=== PATIENT | female | born 1960 | race Caucasian/White ===

== ENCOUNTER 2020-01-07 06:12 | Emergency (ER) | payer OTHER, SELFPAY ==
[2020-01-07 06:15] VITALS: BP 140/89; PULSE 89; RESP 18; TEMP 36.8; O2SAT 98; BMI 29.0
--- NOTE | 2020-01-07 06:35 | PC.NURSE ---
PATIENT BEGAN CALLING FOR HELP. THIS RN RETURNED TO ROOM, PATIENT VOMITED APPROXIMATE 150 MLS OF BILE INTO EMESIS BAG. PATIENT ASKED FOR MULITPLE PILLS AND MEDICATION. PATIENT ORIENTATED TO PROCESS NEEDING MD HARKINS FOR MEDICATIONS. WELL HERE, YOU CAN TAKE THIS, GESTURING TO EMESIS BAG. PATIENT ASKED WHAT MADE HER IRRITATED. PER PATIENT, SHE LEFT [facility] DUE TO ED TRANSFER TO [facility].
--- NOTE | 2020-01-07 06:37 | ED_ITS ---
HPI - Abdominal Pain General Chief Complaint: Abdominal Pain Stated Complaint: ACUTE PANCREATITIS Time Seen by Provider: 01/07/20 06:37 Source: patient Mode of arrival: ambulatory Limitations: no limitations History of Present Illness MD elicited complaint: abdominal pain Pertinent past history: other (pancreatitis) Onset (ago): day(s) (2) Pain Consistency: constant Location: epigastric Severity: severe Quality: stabbing Migration to: no migration Exacerbating factors: movement Relieving factors: nothing Associated symptoms: nausea and vomiting Treatments prior to arrival: other (went to [facility] last night CT scan limited but possible mild pancreatitis, lipase 52 left AMA sent home on dilaudid) Related Data Previous Rx's Medication Instructions Recorded nitrofurantoin monohyd/m-cryst 100 mg PO BID 7 Days #14 cap 01/07/20 [Macrobid] ondansetron 4 mg PO Q8H PRN #20 tab 01/07/20 Allergies Allergy/AdvReac Type Severity Reaction Status Date / Time Sulfa (Sulfonamide Allergy Severe ANAPHYLAXIS Verified 01/07/20 07:54 Antibiotics) Penicillins [PENICILLINS] Allergy Unknown ANAPHYLAXIS Verified 01/07/20 07:54 Review of Systems Review of Systems Constitutional : No Weight loss, No Fever, No Chills ENT/Mouth : No sore throat, No Rhinorrhea Eyes: No Swelling, No Redness Cardiovascular : No Chest Pain, No SOB, NoEdema Respiratory : No Cough, No Sputum, No Wheezing Gastrointestinal : Positive Nausea, Positive Vomiting, no Diarrhea, positive abdominal Pain, No Hematochezia, No Melena Genitourinary : No Dysuria, No Urinary Frequency, No Hematuria, No Urgency Musculoskeletal : No joint pain, No Myalgias, No Joint Swelling Skin : No Skin Lesions, No rash Neuro : No Weakness, No Numbness, No Dizziness, No Headache Psych : No Anxiety/Panic, No Depression All other systems reviewed and are negative. Physical Exam Vital Signs: Vital Signs: Last Vital Signs Temp 98.3 F 01/07/20 06:15 Pulse 89 01/07/20 06:15 Resp 18 01/07/20 06:15 BP 140/89 H 01/07/20 06:15 Pulse Ox 98 01/07/20 06:15 Body Mass Index 29.0 Appearance: Alert. Oriented X3. No acute distress. talking on phone as I enter the room no distress, animated Eyes: Pupils equal, round and reactive to light. ENT: Pharynx normal. Neck: Normal inspection. Neck supple. CVS: Normal heart rate and rhythm. Pulses normal. Respiratory: No respiratory distress. Breath sounds normal. Abdomen: Soft and mild epigastric ttp no rebound or guarding Skin: Skin warm and dry. Normal skin color. Normal skin turgor. Extremities: No lower extremity edema. No calf ttp Neuro: Oriented X 3. No motor deficit. No sensory deficit. Course Course Course Narrative: [facility] records patient did not leave AMA - just preferred to go home US ordered today for better evaluation of pancreas not toxic, can tolerate PO, US and labs unremarkable stable for DC MDM - Abdominal Pain MDM Narrative Medical decision making narrative: 59 yo female s/p lap wilfred here with pancreatitis flare denies ETOH reports epigastric pain and vomiting for 2 days, just seen at outside facility with lipase of [address] report - appears to have signed out AMA and was sent home on dilaudid at this time will repeat labs, hydrate and medicate - depending on findings may be able to go home, her exam is fairly benign as well and shows no signs of dehydration Lab Data Result diagrams: 01/07/20 07:26 01/07/20 07:26 Labs: Lab Results 01/07/20 01/07/20 01/07/20 Range/Units 07:26 07:26 07:26 WBC 13.7 H (4.8-10.8) X10*3/uL RBC 4.94 (4.20-5.50) X10*6/uL Hgb 14.3 (12.0-16.0) g/dl Hct 43.9 (37-47) % MCV 88.9 (80-98) fL MCH 28.9 (27.0-33.0) pg MCHC 32.6 (31.0-35.0) g/dl RDW 13.6 (11.0-16.0) % Plt Count 404 H (160-400) X10*3/uL MPV 9.7 (9.4-12.3) fL Immature Gran % (Auto) 0.5 H (0.0-0.4) % Neut % (Auto) 82.7 H (45-73) % Lymph % (Auto) 10.2 L (20-40) % Randolph % (Auto) 5.6 (2-11) % Eos % (Auto) 0.6 (0-4) % Baso % (Auto) 0.4 (0-2) % Lymph # (Auto) 1.4 (1.2-4.9) X10*3/uL Randolph # (Auto) 0.8 (0.1-1.2) X10*3/uL Eos # (Auto) 0.1 (0.0-0.4) X10*3/uL Baso # (Auto) 0.1 (0.0-0.2) X10*3/uL Abs Immat Gran (auto) 0.07 H (0.00-0.03) X10*3/uL Absolute Neuts (auto) 11.3 H (2.0-8.3) X10*3/uL Absolute Nucleated RBC 0.000 (0.0-0.012) X10*3/uL Nucleated RBC % (auto) 0.0 (0.0-0.2) /100WBC PT (10.8-13.0) SEC INR (0.9-1.1) APTT (24.1-38.0) SEC Sodium 140 (135-145) mmol/L Potassium 3.7 (3.3-5.1) mmol/l Chloride 101 (96-108) mmol/L Carbon Dioxide 27 (22-29) mmol/L Anion Gap 16 (12-20) BUN 8 L (9-16) mg/dL Creatinine 0.70 (0.5-1.4) mg/dL Estim Creat Clear Calc 78.5 Estimated GFR > 60 Random Glucose 134 H (60-115) mg/dL Calcium 9.7 (8.4-10.2) mg/dL Magnesium 2.0 (1.6-2.6) mg/dL Total Bilirubin 1.3 H (0.0-1.0) mg/dL Direct Bilirubin 0.4 (0.0-0.5) mg/dL AST 21 (5-31) U/L ALT 19 (0-31) U/L Alkaline Phosphatase 93 (39-117) U/L Total Protein 7.8 (6.5-8.0) g/dL Albumin 4.7 (3.5-5.0) g/dL Lipase 35 (8-78) U/L Urinalysis Urine Color Urine Appearance Urine pH (5.0-8.0) Ur Specific [place] (1.005-1.025) Urine Protein (NEG-TRACE) MG/DL Urine Glucose (UA) (NEG) MG/DL Urine Ketones (NEG) MG/DL Urine Blood (NEG) Urine Nitrite (NEG) Ur Leukocyte Esterase (NEG) Urine RBC (0) /HPF Urine WBC (0-4) /HPF Ur Squamous Epith Cells /LPF Urine Bacteria /LPF Urine Mucus /LPF Urine Opiates Screen (Not Detect) Ur Barbiturates Screen (Not Detect) Ur Phencyclidine Scrn (Not Detect) Ur Amphetamines Screen (Not Detect) U Benzodiazepines Scrn (Not Detect) Urine Cocaine Screen (Not Detect) U Marijuana (THC) Screen (Not Detect) Ethyl Alcohol < 10 mg/dL 01/07/20 01/07/20 01/07/20 Range/Units 07:26 07:26 07:39 WBC (4.8-10.8) X10*3/uL RBC (4.20-5.50) X10*6/uL Hgb (12.0-16.0) g/dl Hct (37-47) % MCV (80-98) fL MCH (27.0-33.0) pg MCHC (31.0-35.0) g/dl RDW (11.0-16.0) % Plt Count (160-400) X10*3/uL MPV (9.4-12.3) fL Immature Gran % (Auto) (0.0-0.4) % Neut % (Auto) (45-73) % Lymph % (Auto) (20-40) % Randolph % (Auto) (2-11) % Eos % (Auto) (0-4) % Baso % (Auto) (0-2) % Lymph # (Auto) (1.2-4.9) X10*3/uL Randolph # (Auto) (0.1-1.2) X10*3/uL Eos # (Auto) (0.0-0.4) X10*3/uL Baso # (Auto) (0.0-0.2) X10*3/uL Abs Immat Gran (auto) (0.00-0.03) X10*3/uL Absolute Neuts (auto) (2.0-8.3) X10*3/uL Absolute Nucleated RBC (0.0-0.012) X10*3/uL Nucleated RBC % (auto) (0.0-0.2) /100WBC PT 12.8 (10.8-13.0) SEC INR 1.1 (0.9-1.1) APTT 33.7 (24.1-38.0) SEC Sodium (135-145) mmol/L Potassium (3.3-5.1) mmol/l Chloride (96-108) mmol/L Carbon Dioxide (22-29) mmol/L Anion Gap (12-20) BUN (9-16) mg/dL Creatinine (0.5-1.4) mg/dL Estim Creat Clear Calc Estimated GFR Random Glucose (60-115) mg/dL Calcium (8.4-10.2) mg/dL Magnesium Cancelled (1.6-2.6) mg/dL Total Bilirubin Cancelled (0.0-1.0) mg/dL Direct Bilirubin Cancelled (0.0-0.5) mg/dL AST Cancelled (5-31) U/L ALT Cancelled (0-31) U/L Alkaline Phosphatase Cancelled (39-117) U/L Total Protein Cancelled (6.5-8.0) g/dL Albumin Cancelled (3.5-5.0) g/dL Lipase Cancelled (8-78) U/L Urinalysis Urine Color YELLOW Urine Appearance HAZY Urine pH 7.0 (5.0-8.0) Ur Specific [place] 1.020 (1.005-1.025) Urine Protein TRACE (NEG-TRACE) MG/DL Urine Glucose (UA) NEG (NEG) MG/DL Urine Ketones >=80 (NEG) MG/DL Urine Blood TRACE (NEG) Urine Nitrite NEG (NEG) Ur Leukocyte Esterase TRACE H (NEG) Urine RBC 1-4 (0) /HPF Urine WBC 5-9 H (0-4) /HPF Ur Squamous Epith Cells 1+ /LPF Urine Bacteria NONE /LPF Urine Mucus 1+ /LPF Urine Opiates Screen (Not Detect) Ur Barbiturates Screen (Not Detect) Ur Phencyclidine Scrn (Not Detect) Ur Amphetamines Screen (Not Detect) U Benzodiazepines Scrn (Not Detect) Urine Cocaine Screen (Not Detect) U Marijuana (THC) Screen (Not Detect) Ethyl Alcohol mg/dL 01/07/20 01/07/20 Range/Units 07:45 07:45 WBC (4.8-10.8) X10*3/uL RBC (4.20-5.50) X10*6/uL Hgb (12.0-16.0) g/dl Hct (37-47) % MCV (80-98) fL MCH (27.0-33.0) pg MCHC (31.0-35.0) g/dl RDW (11.0-16.0) % Plt Count (160-400) X10*3/uL MPV (9.4-12.3) fL Immature Gran % (Auto) (0.0-0.4) % Neut % (Auto) (45-73) % Lymph % (Auto) (20-40) % Randolph % (Auto) (2-11) % Eos % (Auto) (0-4) % Baso % (Auto) (0-2) % Lymph # (Auto) (1.2-4.9) X10*3/uL Randolph # (Auto) (0.1-1.2) X10*3/uL Eos # (Auto) (0.0-0.4) X10*3/uL Baso # (Auto) (0.0-0.2) X10*3/uL Abs Immat Gran (auto) (0.00-0.03) X10*3/uL Absolute Neuts (auto) (2.0-8.3) X10*3/uL Absolute Nucleated RBC (0.0-0.012) X10*3/uL Nucleated RBC % (auto) (0.0-0.2) /100WBC PT (10.8-13.0) SEC INR (0.9-1.1) APTT (24.1-38.0) SEC Sodium (135-145) mmol/L Potassium (3.3-5.1) mmol/l Chloride (96-108) mmol/L Carbon Dioxide (22-29) mmol/L Anion Gap (12-20) BUN (9-16) mg/dL Creatinine (0.5-1.4) mg/dL Estim Creat Clear Calc Estimated GFR Random Glucose (60-115) mg/dL Calcium (8.4-10.2) mg/dL Magnesium (1.6-2.6) mg/dL Total Bilirubin (0.0-1.0) mg/dL Direct Bilirubin (0.0-0.5) mg/dL AST (5-31) U/L ALT (0-31) U/L Alkaline Phosphatase (39-117) U/L Total Protein (6.5-8.0) g/dL Albumin (3.5-5.0) g/dL Lipase (8-78) U/L Urinalysis Cancelled Urine Color Urine Appearance Urine pH (5.0-8.0) Ur Specific [place] (1.005-1.025) Urine Protein (NEG-TRACE) MG/DL Urine Glucose (UA) (NEG) MG/DL Urine Ketones (NEG) MG/DL Urine Blood (NEG) Urine Nitrite (NEG) Ur Leukocyte Esterase (NEG) Urine RBC (0) /HPF Urine WBC (0-4) /HPF Ur Squamous Epith Cells /LPF Urine Bacteria /LPF Urine Mucus /LPF Urine Opiates Screen POSITIVE H (Not Detect) Ur Barbiturates Screen Not Detected (Not Detect) Ur Phencyclidine Scrn Not Detected (Not Detect) Ur Amphetamines Screen Not Detected (Not Detect) U Benzodiazepines Scrn Not Detected (Not Detect) Urine Cocaine Screen Not Detected (Not Detect) U Marijuana (THC) Screen POSITIVE H (Not Detect) Ethyl Alcohol mg/dL ECG Data Attestation: I personally reviewed and interpreted this ECG as follows: ECG interpretation date: 01/07/20 ECG interpretation time: 07:22 Interpretation: Rate:71 Rhythm: NSR [place]: normal Normal P waves. Normal CRYSTAL. Normal QRS complex. ST T wave : normal qTC: normal prior studies: normal no acute ischemia The study has been interpreted contemporaneously by me. . Discharge Plan Discharge Clinical Impression: Abdominal pain Qualifiers: Abdominal location: epigastric Qualified Code(s): R10.13 - Epigastric pain UTI (urinary tract infection) Qualifiers: Urinary tract infection type: site unspecified Hematuria presence: without hematuria Qualified Code(s): N39.0 - Urinary tract infection, site not specified Patient Disposition: Home, Self-Care Instructions: Urinary Tract Infection in Women (ED), Abdominal Pain (ED) Prescriptions: New ondansetron 4 mg tablet,disintegrating 4 mg PO Q8H PRN (Reason: nausea and vomiting) Qty: 20 RF: 0 nitrofurantoin monohyd/m-cryst [Macrobid] 100 mg capsule 100 mg PO BID 7 Days Qty: 14 RF: 0 Referrals: David Cast MD [Primary Care Provider] - 2 days (if not better) [facility] Past Medical History Attestation statement: The following information was validated with the patient. Medical History Cholecystectomy planned Pancreatitis Surgical History History of cholecystectomy Social History Social History Smoking Status: Unknown if ever smoked Smoked in Last 30 Days: No Use of substances other than those prescribed or required for medical reasons: No Advance Directives: No Advance Directives Information Provided: No
--- NOTE | 2020-01-07 07:03 | ECG_ITS ---
Test Reason : ABDOMINAL PAIN Blood Pressure : / mmHG Vent. Rate : 071 BPM Atrial Rate : 071 BPM P-R Int : 142 ms QRS Dur : 080 ms QT Int : 384 ms P-R-T Axes : 037 020 036 degrees QTc Int : 417 ms Normal sinus rhythm Normal ECG When compared with ECG of 21-AUG-2012 21:14, Vent. rate has decreased BY 41 BPM Minimal criteria for Inferior infarct are no longer Present Nonspecific T wave abnormality no longer evident in Inferior leads Nonspecific T wave abnormality no longer evident in Lateral leads Referred By: Bernadette Cárdenas Electronically Signed By:CHRISTY STEELE MD
--- NOTE | 2020-01-07 07:09 | PC.NURSE ---
REPORT FROM MARVIN MEMBRENO.
--- NOTE | 2020-01-07 07:22 | US_ITS ---
EXAMINATION: US ABDOMEN LIMITED CLINICAL INFORMATION: Upper abdominal pain, evaluate pancreas. COMPARISON: None TECHNIQUE: Real-time imaging of the right upper quadrant abdominal viscera. FINDINGS: PANCREAS: Visualized portions unremarkable. The tail is partially obscured by bowel gas shadowing. LIVER: An echogenic subcapsular focus is seen posterolaterally in the right lobe measuring up to 0.7 cm. The remainder of the liver is unremarkable. GALLBLADDER: Status post cholecystectomy. COMMON BILE DUCT: Normal in caliber measuring 0.5 cm in diameter. RIGHT KIDNEY: 10.5 cm. Unremarkable. FREE FLUID: None. US/US abdomen limited IMPRESSION: 1. No significant pancreatic abnormality. 2. Probable small subcapsular calcification demonstrated benign features posterolaterally in the right hepatic lobe. No other significant hepatic abnormality. 3. Status post cholecystectomy. No significant biliary ductal dilatation.
[2020-01-07 07:34] LABS: MANUAL DIFF FLAG NO
[2020-01-07 07:40] LABS: Basophils Absolute Auto 0.1 X10*3/uL (0.0-0.2); Basophils Percent Auto 0.4 % (0-2); Eosinophils Absolute Auto 0.1 X10*3/uL (0.0-0.4); Eosinophils Percent Auto 0.6 % (0-4); Hematocrit 43.9 % (37-47); Hemoglobin 14.3 g/dl (12.0-16.0); Imm Gran Abs Auto 0.07 X10*3/uL (0.00-0.03); Imm Gran Pct Auto 0.5 % (0.0-0.4); Lymphocytes Absolute Auto 1.4 X10*3/uL (1.2-4.9); Lymphocytes Percent Auto 10.2 % (20-40); Mean Corpuscular HGB Conc 32.6 g/dl (31.0-35.0); Mean Corpuscular Hemoglobin 28.9 pg (27.0-33.0); Mean Corpuscular Volume 88.9 fL (80-98); Mean Platelet Volume 9.7 fL (9.4-12.3); Monocytes Absolute Auto 0.8 X10*3/uL (0.1-1.2); Monocytes Percent Auto 5.6 % (2-11); Neutrophils Absolute Auto 11.3 X10*3/uL (2.0-8.3); Neutrophils Percent Auto 82.7 % (45-73); Platelet Count 404 X10*3/uL (160-400); Red Blood Count 4.94 X10*6/uL (4.20-5.50); Red Cell Distribution Width 13.6 % (11.0-16.0); White Blood Count 13.7 X10*3/uL (4.8-10.8)
[2020-01-07] MEDS: 0.9 % Sodium Chloride 1,000 ML 999 ML IVCONT (07:40)
[2020-01-07] MEDS: ondansetron HCL 4 MG/2 ML VIAL IVPUSH (07:40)
[2020-01-07] MEDS: HYDROmorphone HCl 1 MG/ML SYRINGE IVPUSH (07:40)
[2020-01-07 07:44] LABS: INTERNATIONAL NORM RATIO 1.1 (0.9-1.1); Prothrombin Time 12.8 SEC (10.8-13.0)
[2020-01-07 07:47] LABS: Partial Thromboplastin Time 33.7 SEC (24.1-38.0)
[2020-01-07 08:12] LABS: Ethanol < 10 mg/dL
[2020-01-07 08:31] LABS: Amphetamine Screen Urine Not Detected (Not Detect); Barbiturates, Urine Not Detected (Not Detect); Benzodiazepines Screen Urine Not Detected (Not Detect); Cannabinoid Screen Urine POSITIVE (Not Detect); Cocaine Screen Urine Not Detected (Not Detect); Opiate Screen Urine POSITIVE (Not Detect); Phencyclidine Screen Urine Not Detected (Not Detect)
[2020-01-07 09:02] LABS: Glucose Urine UA NEG (NEG); Leukocyte Esterase Urine TRACE (NEG); Nitrite Urine NEG (NEG); Urine Blood TRACE (NEG); Urine Ketones >=80 MG/DL (NEG); Urine Protein TRACE MG/DL (NEG-TRACE)
[2020-01-07 09:05] LABS: Appearance Urine HAZY; Color Urine YELLOW
[2020-01-07 09:16] LABS: Mucus Urine 1+ /LPF; Squamous Epithelial Cell Urine 1+ /LPF
[2020-01-07 09:34] LABS: Alanine Aminotransferase 19 U/L (0-31); Albumin Level 4.7 g/dL (3.5-5.0); Alkaline Phosphatase 93 U/L (39-117); Anion Gap 16 (12-20); Aspartate Amino Transferase 21 U/L (5-31); Bilirubin Direct 0.4 mg/dL (0.0-0.5); Bilirubin Total 1.3 mg/dL (0.0-1.0); Blood Urea Nitrogen 8 mg/dL (9-16); Calcium 9.7 mg/dL (8.4-10.2); Carbon Dioxide 27 mmol/L (22-29); Chloride 101 mmol/L (96-108); Creatinine Clr Calc Pharmacy 78.5; Estimated Glomerular Filt Rate > 60; Glucose Random 134 mg/dL (60-115); Lipase 35 U/L (8-78); Potassium 3.7 mmol/l (3.3-5.1); Sodium 140 mmol/L (135-145); Total Protein 7.8 g/dL (6.5-8.0)
--- NOTE | 2020-01-07 10:38 | PC.NURSE ---
PT GIVEN PO TRIAL. CONCERNED ABOUT GOING HOME DUE TO VOMITING. NO VOMITING NOTED WHILE HERE
[2020-01-07 10:39] VITALS: BP 127/77; PULSE 86; O2SAT 98
--- NOTE | 2020-01-07 11:49 | PC.NURSE ---
patient a&ox3, pt c/o headache notified provider, pt doesnt wish to discharge until ivf have been completed, will continue to monitor.
== END 2020-01-07 12:27 | disposition home or self-care (01) ==
PROVIDERS: Emergency Provider Emergency Medicine; PCP Internal Medicine
DX: N39.0 Urinary tract infection, site not specified (principal); R10.13 Epigastric pain; Z79.899 Other long term (current) drug therapy
CPT/HCPCS: 36415; 76705; 80048; 80076; 80307; 80320; 81001; 81003; 83690; 83735; 85025; 85610; 85730; 87086; 93005; 96361; 96374; 96375; 99284; J1170; J2405

== ENCOUNTER 2020-10-06 18:20 | Emergency (ER) | payer OTHER, SELFPAY ==
--- NOTE | ~2020-10-06 | XR_ITS ---
EXAMINATION: LUMBAR SPINE, SACRUM AND COCCYX CLINICAL INFORMATION: Fall on buttock COMPARISON: CT abdomen pelvis 04/01/2013 TECHNIQUE: 2 views lumbosacral spine, 3 views sacrum and coccyx FINDINGS: There has been posterior fixation with pedicular screws at L4 and S1 with vertical stabilization rods since the prior CT scan from 2013. Hardware appears intact. Disc spacers are present at the L4-L5 and L5-S1 levels. Some surgical clips are noted anterior to L4 and L5 vertebral bodies. Mild degenerative changes are present at other levels. A single surgical clip present in the left hemipelvis. The sacrum and coccyx appear normal without a fracture seen. XR/XR lumbar spine 2-3V IMPRESSION: Status post spinal fixation as described above. No evidence of an acute injury.
--- NOTE | ~2020-10-06 | XR_ITS ---
EXAMINATION: LUMBAR SPINE, SACRUM AND COCCYX CLINICAL INFORMATION: Fall on buttock COMPARISON: CT abdomen pelvis 04/01/2013 TECHNIQUE: 2 views lumbosacral spine, 3 views sacrum and coccyx FINDINGS: There has been posterior fixation with pedicular screws at L4 and S1 with vertical stabilization rods since the prior CT scan from 2013. Hardware appears intact. Disc spacers are present at the L4-L5 and L5-S1 levels. Some surgical clips are noted anterior to L4 and L5 vertebral bodies. Mild degenerative changes are present at other levels. A single surgical clip present in the left hemipelvis. The sacrum and coccyx appear normal without a fracture seen. XR/XR sacrum coccyx min 2V IMPRESSION: Status post spinal fixation as described above. No evidence of an acute injury.
[2020-10-06 18:30] VITALS: BP 139/90; PULSE 75; RESP 18; TEMP 36.7; O2SAT 99; BMI 30.6
--- NOTE | 2020-10-06 18:50 | ED_ITS ---
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 has ambulated since incident. Reports chronic lower extremity numbness/tingling and nerve damage from prior surgery, symptoms unchanged at present. Denies urinary incontinence/retention, fecal incontinence, weakness, fever MD elicited complaint: back pain and back injury Related Data Previous Rx's Medication Instructions Recorded nitrofurantoin 100 mg PO BID 7 Days #14 cap 01/07/20 monohydrate/macrocrystals 100 mg capsule (Macrobid) ondansetron 4 mg disintegrating 4 mg PO Q8H PRN #20 tab 01/07/20 tablet acetaminophen 500 mg tablet 500 mg PO Q6H PRN #20 tab 10/06/20 (Tylenol Extra Strength) lidocaine 5 % topical patch 1 patch TOPICAL DAILY PRN #30 ea 10/06/20 (Lidoderm) MDD remove after 12 hours naproxen 500 mg tablet 500 mg PO BID PRN 10 Days #20 tab 10/06/20 Allergies Allergy/AdvReac Type Severity Reaction Status Date / Time Sulfa (Sulfonamide Allergy Severe ANAPHYLAXIS Verified 01/07/20 07:54 Antibiotics) Penicillins [PENICILLINS] Allergy Unknown ANAPHYLAXIS Verified 01/07/20 07:54 Review of Systems Review of Systems: Constitutional: No Fever, No Chills Cardiovascular: No Chest Pain, No SOB Respiratory: No Cough Gastrointestinal: No Nausea, No Vomiting, No Abdominal pain Genitourinary: No Urinary Incontinence/retention, No fecal incontinence Musculoskeletal: + joint pain, No Myalgias Skin: No Skin Lesions, No rash Neuro: No Weakness, +chronic Numbness, +chronic Paresthesias Yes all other systems are reviewed and are negative [facility] Past Medical History Attestation statement: The following information was validated with the patient. Medical History Cholecystectomy planned Pancreatitis Surgical History History of cholecystectomy Social History Social History Advance Directives: No Advance Directives Information Provided: No Physical Exam Vital Signs: Vital Signs: Last Vital Signs Temp 98.1 F 10/06/20 18:30 Pulse 75 10/06/20 18:30 Resp 18 10/06/20 18:30 BP 139/90 H 10/06/20 18:30 Pulse Ox 99 10/06/20 18:30 Body Mass Index 30.6 Const: General: cooperative and healthy appearing Orientation/consciousness: patient oriented x3 Limitations: no limitations HENMT: Head: Yes normal to inspection Ears: hearing grossly normal bilaterally General nose exam: Normal external nose present Face and sinus: Yes normal facial exam Eyes: General: appearance normal, both eyes and all related structures EOM: EOMs intact bilaterally Neck: Neck: Yes normal visual inspection and Yes no meningeal signs Resp: Effort & Inspection: normal respiratory effort and no respiratory distress Cardio: Rate: regular rate Peripheral pulses: dorsalis pedis present GI: Inspection: Yes normal to inspection Palpation (GI): Soft to palpation, nontender, no guarding and not rigid Back/Spine/Pelvis: Other: No midline thoracic/lumbar spinous tenderness or step-off/deformity. +bilateral paraspinal lumbar MSK ttp and coccygeal tenderness to palpation. No appreciable deformities/ecchymosis or erythema Skin: Rashes: no rashes Wounds: no wounds Neuro: Other: Decreased sensation to LLE chronically. No saddle anesthesia General: patient oriented x3, tone normal, moves all extremities and no meningeal signs Motor exam (neuro): 5/5 motor strength present throughout Extrem: General: Yes normal to inspection Course Course Course Narrative: XR XR lumbar spine 2-3V & :sacrum coccyx min 2V IMPRESSION: Status post spinal fixation as described above. No evidence of an acute injury.? >> results discussed with patient. Will give p.o. 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 No midline spinous tenderness throughout, no red flag symptoms. Coccygeal/bilateral paraspinal lumbar tenderness to palpation. Rule out coccygeal/sacral fracture vs MSK pain/strain. Low concern for cauda equina/cord compression Plan: X-rays Discharge Plan Discharge Clinical Impression: Low back pain Qualifiers: Chronicity: acute Back pain laterality: bilateral Sciatica presence: with sciatica Sciatica laterality: sciatica laterality unspecified Qualified Code(s): M54.40 - Lumbago with sciatica, unspecified side Patient Disposition: Home, Self-Care Instructions: Acute Low Back Pain (ED) Additional Instructions: Your x-rays did not show any acute fracture or injury It is important for you to follow-up with her primary care doctor. Your pain is likely musculoskeletal Naproxen as an anti-inflammatory / pain medication, take with food Lidoderm patches are numbing patches, apply to painful area In addition take Tylenol at home If symptoms persist or worsen, pain becomes unbearable, you developed urinary retention or incontinence, or weakness return to the ED Prescriptions: New acetaminophen [Tylenol Extra Strength] 500 mg tablet 500 mg PO Q6H PRN (Reason: pain or fever) Qty: 20 RF: 0 lidocaine [Lidoderm] 5 % adhesive patch,medicated 1 patch topical DAILY MDD remove after 12 hours PRN (Reason: pain) Qty: 30 RF: 0 naproxen 500 mg tablet 500 mg PO BID PRN (Reason: pain) 10 Days Qty: 20 RF: 0 No Action ondansetron 4 mg tablet,disintegrating 4 mg PO Q8H PRN (Reason: nausea and vomiting) Qty: 20 RF: 0 nitrofurantoin monohyd/m-cryst [Macrobid] 100 mg capsule 100 mg PO BID 7 Days Qty: 14 RF: 0 Referrals: Physician,Unknown [Primary Care Provider] - 2 days
== END 2020-10-06 20:16 | disposition home or self-care (01) ==
PROVIDERS: Emergency Provider Emergency Medicine
DX: M54.40 Lumbago with sciatica, unspecified side (principal)
CPT/HCPCS: 72100; 72220; 99283